=== PATIENT | male | born 1980 | race Asian ===

== ENCOUNTER 2022-01-12 15:13 | Emergency (ER) | payer MEDICAID ==
[~2022-01-12 15:13] MED LIST: RISP3TAB35 PO
== END 2022-01-12 16:22 | disposition home or self-care (01) ==
LOC: EMS 15:17
DX: F29 Unspecified psychosis not due to a substance or known physiological condition (principal)
CPT/HCPCS: 99281; Z7502

== ENCOUNTER 2022-07-08 18:20 | Emergency (ER) | payer MEDICAID ==
[~2022-07-08] VITALS: Ht 167.6 cm; Wt 75.0 kg
[2022-07-08 18:25] VITALS: BP 194/104
== END 2022-07-08 19:30 | disposition left against medical advice (07) ==
LOC: EMS 19:04
DX: Z53.21 Procedure and treatment not carried out due to patient leaving prior to being seen by health care provider (principal)

== ENCOUNTER 2025-06-05 00:14 | Emergency (ER) | payer OTHER ==
[~2025-06-05] VITALS: Ht 167.6 cm; Wt 70.0 kg
[~2025-06-05 00:14] MED LIST changes: +AMOX-457 PO; -RISP3TAB35 PO
[2025-06-05 00:25] VITALS: TEMP 98.2
[2025-06-05] MEDS ORDERED: MIDAZOLAM HCL 5 MG/ML VIAL ONE (00:59)
[2025-06-05] MEDS: MIDAZOLAM HCL 5 MG/ML VIAL IM ONE (01:10)
[2025-06-05 01:21] LABS: PLATELET COUNT (AUTO) 211 K/uL (150-450); RED BLOOD CELL COUNT(AUTO) 4.40 MIL/uL (4.50-5.90); RED CELL DISTRIBUTION WIDTH 12.6 % (11.5-14.5); WHITE BLOOD COUNT (AUTO) 12.5 K/uL (4.5-11.0)
[2025-06-05 01:34] LABS: CALCIUM, TOTAL 8.4 mg/dL (8.8-10.5); CREATININE 1.29 mg/dL (0.60-1.30); GLOMERULAR FILTR. RATE CALC > 60 mL/min (>60); GLUCOSE,RANDOM 122 mg/dL (70-110); SODIUM SERUM 140 mmol/L (136-145); UREA NITROGEN, BLOOD 26 mg/dL (7-18)
[2025-06-05 04:59] VITALS: BP 142/95; PULSE 75; RESP 16; O2SAT 100
== END 2025-06-05 05:35 ==
LOC: EMS 00:37
DX: F15.10 Other stimulant abuse, uncomplicated (principal); I10 Essential (primary) hypertension; F20.9 Schizophrenia, unspecified; R51.9 Headache, unspecified; Z04.3 Encounter for examination and observation following other accident; Z79.899 Other long term (current) drug therapy
CPT/HCPCS: 99285; 70450; 80048; 85025; 36415; 96372; G0480; J2250